=== PATIENT | female | born 1975 | race Caucasian/White ===

== ENCOUNTER 2016-07-02 09:39 | Day surgery (SDC) | payer BC ==
--- NOTE | 2016-07-02 12:06 | Operative Note ---
Endoscopy Report Date: 07/02/16 Preoperative diagnosis: Dysphagia Procedure Type of procedure: Esophagogastroduodenoscopy with biopsies Indications: Patient is a 41-year-old white female who for about one year has had what she describes as "breathing problems". She describes "choking" when she is eating and states that she, according to her, is unable to swallow and debris simultaneously. She has had some rare spontaneous vomiting. She underwent upper gastrointestinal series which was unremarkable. Plan was made for upper endoscopy to evaluate potential etiology for her symptoms. Consent was obtained and patient was taken to the same-day surgery endoscopy procedure room. She was positioned in a lateral decubitus position. Adequate intravenous sedation was achieved which of note required titration of 14 mg versed and 200 g fentanyl for the duration of the brief procedure. Olympus endoscope was inserted via the oropharynx and advanced to the esophagus. Esophagus appeared grossly normal. Stomach was cannulated and insufflated. Retroflexion revealed no evidence of any appreciable hiatal hernia. There was some diffuse nonerosive gastritis characterized by mucosal erythema and mild induration. Gastric antral mucosal biopsy was obtained for CLOtest for H. pylori. Additional biopsies were obtained of the gastric lumen. Pylorus was traversed and duodenum appeared unremarkable. Couple of duodenal biopsies were obtained. Labs she's were obtained at the gastroesophageal junction. Random esophageal biopsies were obtained due to her symptoms of dysphagia. Findings: Mild nonerosive gastritis. Recommendations: Follow-up on the results of her biopsies and H. pylori status. May benefit from proton pump inhibitors. However, no clear etiology for her unusual symptoms. Could require speech therapy for swallowing study and possible pulmonary consultation. at 1201
[2016-07-02 14:43] VITALS: BP 145/70
== END 2016-07-02 13:00 | disposition home or self-care (01) ==
LOC: SDC 09:39
PROVIDERS: Surgery
PROC: 0DB68ZX Excision of Stomach, Via Natural or Artificial Opening Endoscopic, Diagnostic (ICD-10-PCS; 2016-07-02)
PROC: 0DB98ZX Excision of Duodenum, Via Natural or Artificial Opening Endoscopic, Diagnostic (ICD-10-PCS; 2016-07-02)
PROC: 0DB48ZX Excision of Esophagogastric Junction, Via Natural or Artificial Opening Endoscopic, Diagnostic (ICD-10-PCS; principal; 2016-07-02 10:00)
DX: K29.70 Gastritis, unspecified, without bleeding (principal); R13.10 Dysphagia, unspecified

== ENCOUNTER 2017-05-08 16:39 | Emergency (ER) | payer BC ==
[~2017-05-08] VITALS: Ht 160 cm; Wt 99.8 kg
--- OUTSIDE RECORDS SUMMARY | 2017-05-08 16:48 | External Medical Summary Rpt | CCD ---
Author Author , VINNIE BIRMINGHAM Address Unknown Phone [email or web address] Purpose Continuity of Care Document - 04-24-2017 through 2016 Problems Code Diagnosis DOS Provider Status N80.9 Endometrios is, unspecified Results Labs Lab Lab Date Result Refere Interp Status Commen Order Detail nces retati t Range on CBC (hemogram) Bld Auto (04-26-2017 05:06) RBC # 11-18-2 4.44 3.89-5. complet Bld 017 10*6/mm 14 ed Auto 05:06 3 Hgb 11-18-2 12.9 11.5-15 complet Bld-mCn 017 g/dL .5 ed c 05:06 Hct VFr 11-18-2 40.0 % 34.5-44 complet Bld 017 .0 ed Auto 05:06 MCV RBC 11-18-2 90.1 fL 80.0-99 complet Auto 017 .0 ed 05:06 MCH RBC 11-18-2 29.1 pg 27.0-31 complet Qn 017 .0 ed Auto 05:06 MCHC 11-18-2 32.3 32.0-36 complet RBC 017 g/dL .0 ed Auto-mC 05:06 nc RDW RBC 11-18-2 12.9 % 11.3-14 complet 017 .5 ed Auto-Rt 05:06 o RDW RBC 11-18-2 42.4 fl 37.0-54 complet Auto 017 .0 ed 05:06 PMV Bld 11-18-2 9.7 fL 6.0-12. complet Auto 017 0 ed 05:06 Platele 11-18-2 299 150-450 complet t # Bld 017 10*3/mm ed Auto 05:06 3 WBC 11-18-2 11.01 3.50-10 complet nRBC 017 10*3/mm .80 ed cor # 05:06 3 Bld Bas Metab 2000 Pnl SerPl (04-26-2017 05:06) Comment: National [employer] Guidelines Comment: Comment: Stage Description GFR Comment: 1 Normal or High 90+ Comment: 2 Mild decrease 60-89 Comment: 3 Moderate decrease 30-59 Comment: 4 Severe decrease 15-29 Comment: 5 Kidney failure <15 Glucose 11-18-2 113 70-100 complet 017 mg/dL ed Bld-mCn 05:06 c BUN 11-18-2 8 mg/dL 9-23 complet Bld-mCn 017 ed c 05:06 Creat 11-18-2 0.60 0.60-1. complet Bld-mCn 017 mg/dL 30 ed c 05:06 Sodium 11-18-2 136 132-146 complet Bld-sCn 017 mmol/L ed c 05:06 Potassi 11-18-2 3.9 3.5-5.5 complet um 017 mmol/L ed Bld-sCn 05:06 c Chlorid 11-18-2 104 99-109 complet e 017 mmol/L ed SerPl-s 05:06 Cnc CO2 11-18-2 25.0 20.0-31 complet SerPl-s 017 mmol/L .0 ed Cnc 05:06 Calcium 11-18-2 9.2 8.7-10. complet 017 mg/dL 4 ed XXX-sCn 05:06 c GFR/BSA 11-18-2 111 >60 complet .pred 017 mL/min/ ed SerPl 05:06 1.73 MDRD-Ar VRat BUN/Cre 11-18-2 13.3 7.0-25. complet at 017 0 ed SerPl 05:06 Anion 11-18-2 7.0 3.0-11. complet Gap3 017 mmol/L 0 ed SerPl-s 05:06 Cnc CBC W Diff pnl,unspecified Bld (04-24-2017 14:18) WBC 11-16-2 10.48 3.50-10 complet nRBC 017 10*3/mm .80 ed cor # 14:18 3 Bld RBC # 11-16-2 4.54 3.89-5. complet Bld 017 10*6/mm 14 ed Auto 14:18 3 Hgb 11-16-2 13.5 11.5-15 complet Bld-mCn 017 g/dL .5 ed c 14:18 MCH RBC 11-16-2 29.7 pg 27.0-31 complet Qn 017 .0 ed Auto 14:18 MCHC -16-2 33.0 32.0-36 complet RBC 017 g/dL .0 ed Auto-mC 14:18 nc RDW RBC -16-2 13.3 % 11.3-14 complet 017 .5 ed Auto-Rt 14:18 o RDW RBC -16-2 43.4 fl 37.0-54 complet Auto 017 .0 ed 14:18 PMV Bld 16-2 9.9 fL 6.0-12. complet Auto 017 0 ed 14:18 Platele -16-2 338 150-450 complet t # Bld 017 10*3/mm ed Auto 14:18 3 Neutrop 1116-2 70.2 % 41.0-71 complet hils/le 017 .0 ed uk NFr 14:18 Bld Auto Lymphoc -16-2 20.7 % 24.0-44 complet ytes/le 017 .0 ed uk NFr 14:18 Bld Auto Monocyt 16-2 6.5 % 0.0-12. complet es/leuk 017 0 ed NFr 14:18 Bld Auto Eosinop -16-2 2.1 % 0.0-3.0 complet hil/oleg 017 ed k NFr 14:18 Bld Auto Hct VFr 16-2 40.9 % 34.5-44 complet Bld 017 .0 ed Auto 14:18 MCV RBC -16-2 90.1 fL 80.0-99 complet Auto 017 .0 ed 14:18 Basophi 11-16-2 0.2 % 0.0-1.0 complet ls/leuk 017 ed NFr 14:18 Bld Auto Imm 11-16-2 0.3 % 0.0-0.6 complet Granulo 017 ed cytes/l 14:18 euk NFr Bld Neutrop 11-16-2 7.36 1.50-8. complet hils # 017 10*3/mm 30 ed Bld 14:18 3 Auto Lymphoc 11-16-2 2.17 0.60-4. complet ytes # 017 10*3/mm 80 ed Bld 14:18 3 Auto Monocyt 11-16-2 0.68 0.00-1. complet es # 017 10*3/mm 00 ed Bld 14:18 3 Auto Eosinop 11-16-2 0.22 0.00-0. complet hil # 017 10*3/mm 30 ed Bld 14:18 3 Auto Basophi 11-16-2 0.02 0.00-0. complet ls # 017 10*3/mm 20 ed Bld 14:18 3 Auto Imm 11-16-2 0.03 0.00-0. complet Granulo 017 10*3/mm 03 ed cytes # 14:18 3 Bld B-HCG SerPl-aCnc (04-24-2017 14:18) Comment: HCG Expected Values: Comment: Comment: Non females: ? less than 5 mIU/mL Comment: Comment: Males: ? less than 5 mIU/mL Comment: Comment: females: Comment: 0-1 Weeks Gestation ?5-50 Comment: 1-2 Weeks Gestation ?50-500 Comment: 2-3 Weeks Gestation ?100-5000 Comment: 3-4 Weeks Gestation ?[phone] Comment: 4-5 Weeks Gestation ?[phone] Comment: 5-6 Weeks Gestation ?[phone] Comment: 6-8 Weeks Gestation ?[phone] Comment: 2-3 Months Gestation ? [phone] Comment: Comment: ? Note: ?If a value is between 5-25 mIU/mL recommend Comment: repeat testing and clinical correlation. HGC < 5.00 complet Intact+ 017 mIU/mL ed B 14:18 SerPl-a Cnc Comp Metab 1998 Pnl SerPl (04-24-2017 14:18) Comment: National Kid[employer] Guidelines Comment: Comment: Stage Description GFR Comment: 1 Normal or High 90+ Comment: 2 Mild decrease 60-89 Comment: 3 Moderate decrease 30-59 Comment: 4 Severe decrease 15-29 Comment: 5 Kidney failure <15 Glucose 131 70-100 complet 017 mg/dL ed Bld-mCn 14:18 c BUN 11-16-2 14 9-23 complet Bld-mCn 017 mg/dL ed c 14:18 Creat 16-2 0.60 0.60-1. complet Bld-mCn 017 mg/dL 30 ed c 14:18 Sodium -16-2 136 132-146 complet Bld-sCn 017 mmol/L ed c 14:18 Potassi 16-2 4.4 3.5-5.5 complet um 017 mmol/L ed Bld-sCn 14:18 c Chlorid 16-2 103 99-109 complet e 017 mmol/L ed SerPl-s 14:18 Cnc CO2 16-2 22.0 20.0-31 complet SerPl-s 017 mmol/L .0 ed Cnc 14:18 Calcium 16-2 9.2 8.7-10. complet 017 mg/dL 4 ed XXX-sCn 14:18 c Prot 16-2 6.8 5.7-8.2 complet SerPl-m 017 g/dL ed Cnc 14:18 Albumin 04-24-2 4.30 3.20-4. complet 017 g/dL 80 ed SerPl-m 14:18 Cnc ALT 16-2 45 U/L 7-40 complet SerPl w 017 ed 14:18 P-5'-P- cCnc AST 04-24-2 33 U/L 0-33 complet SerPl-c 017 ed Cnc 14:18 ALP 16-2 79 U/L 25-100 complet SerPl-c 017 ed Cnc 14:18 Bilirub 16-2 0.3 0.3-1.2 complet 017 mg/dL ed SerPl-m 14:18 Cnc GFR/BSA 16-2 111 >60 complet .pred 017 mL/min/ ed SerPl 14:18 1.73 MDRD-Ar VRat Globuli 16-2 2.5 complet n Ur 017 gm/dL ed Elph-mC 14:18 nc Albumin 16-2 1.7 1.5-2.5 complet /Glob 017 g/dL ed SerPl 14:18 BUN/Cre 04-24-2 23.3 7.0-25. complet at 017 0 ed SerPl 14:18 Anion 04-24-2 11.0 3.0-11. complet Gap3 017 mmol/L 0 ed SerPl-s 14:18 Cnc
--- OUTSIDE RECORDS SUMMARY | 2017-05-08 16:48 | External Medical Summary Rpt | CCD ---
Author Author [employer] Organization [employer] Address Unknown Phone Unavailable Purpose Continuity of Care Document - through 2016
--- OUTSIDE RECORDS SUMMARY | 2017-05-08 16:48 | External Medical Summary Rpt | CCD ---
Author Author , VINNIE BIRMINGHAM Address Unknown Phone [email or web address] Purpose Continuity of Care Document - 04-24-2017 [...] Weeks Gestation ?100-5000 Comment: 3-4 Weeks Gestation ?[phone] Comment: 4-5 Weeks Gestation ?[phone] Comment: 5-6 Weeks Gestation ?[phone] Comment: 6-8 Weeks Gestation ?[phone] Comment: 2-3 Months Gestation ? [phone] Comment: Comment: ? Note: ?If a value [...]
--- OUTSIDE RECORDS SUMMARY | 2017-05-08 16:49 | External Medical Summary Rpt | CCD ---
Demographics Preferred Language Monegasque Marital Status Unknown Pentecostalism Affiliation Unknown Race Unknown Ethnic Group Unknown Author Author , VINNIE BIRMINGHAM Address Unknown Phone Immunization No patient found.
--- OUTSIDE RECORDS SUMMARY | 2017-05-08 16:49 | External Medical Summary Rpt | CCD ---
Demographics Preferred Language Niuean Marital Status Unknown Hoahaoism Affiliation Unknown Race Unknown Ethnic Group Unknown Author Author , VINNIE BIRMINGHAM Address Unknown Phone Immunization No patient found.
[2017-05-08 17:06] LABS: URINE BILIRUBIN - DIPSTICK NEGATIVE (NEG); URINE BLOOD 1+ (NEG)
[2017-05-08] MEDS ORDERED: OXYCODONE 5MG TA5 MG PO (17:34)
[2017-05-08] MEDS ORDERED: HYDROXYZINE HYD50 M1 PO (17:34)
[2017-05-08] MEDS ORDERED: MOTRIN 600MG.600 MG PO (17:35)
[2017-05-08] MEDS ORDERED: STOOL SOFTENER1 TAB NG (17:36)
--- NOTE | 2017-05-08 18:00 | Emergency Room Report ---
History of Present Illness Time Seen by [id number] Presenting Problem in Triage Pt arrived:Walked Presenting Problem:PT STATES SHE HAD A HYSTERECTOMY ON APR 25 AT , DR MARCIE MORGAN. PT HAS INCREASED PELVIC PAIN FOR THE LAST 5 DAYS, WITH LIGHY BLEEDING AT TIMES. PT STATES SHE FEELS TERRIBLE. 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 N Clinical Suspician of Infection? N Mental Status: 1 - Regular (Normal Baseline) Sepsis Risk:Possible Sepsis Risk Have you (or family members/close friends) recently traveled outside the [place]? N If Yes, where/when: Have you had exposure to infectious disease within the past month? N TB? Other? Specify: Patient of Dr. Marcie Wu, [facility] in [place], post op s/p vag hysterectomy due to endometriosis and leiomyomata, as well as mass posterior to bladder with pathology negative for cancer per patient. She has been doing well until the last few days, when she experienced a little vaginal bleeding and some malaise. Reports anterior pain, and some pink tinged fluid vaginally. ALLERGIES Uncoded Allergies: LIQUID BANDAID (SWELLING 07/01/16) Home Medications Reported Medications HYDROXYZINE HCL (Hydroxyzine Hydrochloride) 50 MG PO Q6H #56 OXYCODONE IR (Oxycodone IR) 5 MG PO Q4HP PRN PAIN #20 IBUPROFEN (Motrin 600MG) 600 MG PO Q6HP PRN PAIN #30 SENNOSIDES/DOCUSATE SODIUM (Stool Softener Tablet) 1 TAB NG DAILY History Medical History General CAD? No Angina: No MO: No Hypertension? No Hyperlipidemia? No CHF? No DVT? No PE? No COPD? No Asthma? No Anemia? No GERD? No Gastric ulcers? No GI Bleed? No Hernia? No Thyroid Problems? No Hypothyroidism? No CVA? No Seizures? No Diabetes? No Renal Insuffiency? No End Stage Renal Disease? No UTI? No Stones? No BPH? No GB Disease: No Nephritic Syndrome? No Asplenia? No Hepatitis? No Sickle Cell Disease? No Arthritis? No Migraines? No Cataracts? No Glaucoma? No MRSA? No HIV? No TB? No Anxiety? No Depression? No Cancer? No More? 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 Physical Exam Vital Signs Vital Signs Date Time Temp Pulse Resp B/P Pulse O2 O2 Flow FiO2 Ox Delivery Rate 05/08 1812 16 05/08 1746 98.1 110 20 131/85 97 05/08 1730 98.1 110 20 131/85 97 General Appearance normal appearance, WD/WN, no apparent distress Eye Exam - bilateral eye normal exam, bilateral eye PERRL, bilateral eye EOMI Neck normal inspection, non-tender, supple, full range of motion Respiratory Status Yes: trachea midline, chest symmetrical, non tender chest. No: respiratory distress, tender on palpation, use of accessory muscles, pain on inspiration, pain on expiration. Lung Sounds bilateral: normal breath sounds, lungs clear. Cardiovascular normal exam, regular rate/rhythm, no peripheral edema, no gallop, no JVD, no murmur, no rub, normal peripheral pulses Gastrointestinal normal bowel sounds, normal exam, non tender, soft, no organomegaly, no pulsatile mass, no guarding, no rebound Strength 5 Upper Ext (L), 5 Upper Ext (R), 5 Lower Ext (L), 5 Lower Ext (R) Pelvic normal external exam, normal internal exam, vaginal cuff intact, no trauma or dehiscence noted; minor amount of serosanguinous fluid noted. no blood at urethral meatus. Introitus intact. No lesions. Bacterial swabs obtained and sent to lab. Neurologic alert, normal exam, no motor/sensory deficits, oriented x 3 Skin intact, normal color, warm/dry Medical Decision Making LABS/Meds/Orders Pt receiving controlled substance in ED? No Results/Orders Laboratory Tests 05/08/17 1805: Sodium 136, Potassium 3.7, Chloride 99, Carbon Dioxide 30, BUN 13, Creatinine 0.7, Estimated Creat Clear 168, Estimated GFR (MDRD) 93, Glucose 110 H, Calcium 9.5, Total Bilirubin 0.4, AST 19, ALT 42, Alkaline Phosphatase 97, Total Protein 7.8, Albumin 3.7, Globulin 4.1 H, Albumin/Globulin Ratio 0.9 L, WBC 14.9 H, RBC 4.56, Hgb 13.4, Hct 40.0, MCV 87.8, RDW 12.4, Plt Count 327, MPV 7.2 L, Gran % 82.6 H, Gran # 12.3 H, Lymphocytes % 10.7, Monocytes % 2.4, Eosinophils % 3.8, Basophils % 0.4, Lymphocytes # 1.6, Monocytes # 0.4, Eosinophils # 0.6 H , Basophils # 0.1, PUBS MCHC 33.5, MCH 29.4 05/08/17 170: Urine Color YELLOW, Urine Appearance Clear, Urine pH 6.5, Ur Specific [place] 1.005, Urine Protein NEGATIVE, Urine Ketones NEGATIVE, Urine Blood 1+ H, Urine Nitrate NEGATIVE, Urine Bilirubin NEGATIVE, Urine Urobilinogen 0.2, Ur Leukocyte Esterase TRACE H, Urine Glucose NEGATIVE Current Medication Orders Sig/Ariana Start time Last Medication Dose Route Stop Time Status Admin Iopamidol 75 ML ONCE ONE 05/08 1845 UNV 05/08 IV 05/08 184 1840 Sodium Chloride 10 ML ONCE ONE 05/08 184 UNV 05/08 IV 05/08 1846 1840 Ketorolac 30 MG ONCE ONE 05/08 181 DC 05/08 Tromethamine IV 05/08 1816 181 Ketorolac 0 .STK-MED ONE 05/08 1810 DC Tromethamine .ROUTE Sodium Chloride 10 ML PRN PRN 05/08 174 AC IV 05/09 174 Orders Procedure Date/time Status DIET-NOTHING BY MOUTH 05/09 B Active CULTURE, WOUND 05/[address] ABD & PELVIS W/ CONTRAST 05/[address] ABD/PELVIS REQ 05/08 180 Complete IV SALINE LOCK 05/08 1745 Active CBC WITH AUTO DIFF 05/08 1745 Complete CHEM 12 PROFILE 05/08 1745 Complete UTC URINE DIPSTICK 05/08 170 Complete XRAY/CT/US XRAY/CT/US CT abdomen, pelvis CT interpretation by reviewed by me ([facility] report reviewed) Time results known: 1926 CT Results normal/NAD, Possible cystitis, no abscess; s/p hyst Progress ED Progress Notes 2 Date 05/08/17 Time 1927 Comment Resting comfortably; declines Rx for pain meds; provided with disc for her MD to review at f/u Departure Departure Time of Disposition 1928 Disposition DC Home or Self Care(routine) Clinical Impression Primary Impression: Pelvic pain Secondary Impressions: Post-operative pain Condition STABLE Referrals Tristen Dunlap MD (Family) Patient Instructions DI for Vaginal Hysterectomy Additional Instructions Rx Ciprofloxacin for possible early UTI; see Dr. Wu for follow up as already scheduled and bring your disc for her to review; Ibuprofen as needed. Discharge Counseling Counseled pt/family regarding diagnosis, test results, medications/RX, home care, follow up needs Prescriptions Current Visit Scripts Ciprofloxacin HCl (Cipro 500MG TAB) 500 MG PO BID #14 TAB generic ok ED Critical Care Critical Care No at 1931
[2017-05-08 18:13] LABS: HEMOGLOBIN 13.4 g/dL (12.2-16.2); LYMPH # 1.6 K/mm3 (0.7-4.5); LYMPH % 10.7 % (10-50.0)
[2017-05-08] MEDS ORDERED: CIPRO 500MG TA500 MG PO (19:31)
[2017-05-08 19:33] VITALS: BP 131/85
--- NOTE | 2017-05-09 07:39 | RADIOLOGY REPORT PS360 ---
CT ABD PELVIS W/ CONTRAST CLINICAL INDICATION: Pelvic pain following surgery, recent hysterectomy 10 days ago, dysuria POST OP PAIN, VAGINAL HYSTERECTOMY, REMOVAL OF BENIGN TUMO ORDERING PHYSICIAN: Laverne Beltre MD PATIENT AGE: 41 years COMPARISON: None TECHNIQUE: Axial images obtained with sagittal and coronal reformats. PROCEDURE: Oral Contrast: None IV Contrast: 75 mL Isovue-370 . FINDINGS: Lower thorax: No acute finding ABDOMEN: Liver: No masses or biliary dilatation. Gallbladder: Cholecystectomy, no ductal dilatation Pancreas: No masses or peripancreatic fluid collections. Spleen: Unremarkable. Adrenals: Unremarkable Kidneys/ureters: No masses. No renal calculi. No hydronephrosis. No perinephric fluid collections. No ureteral dilatation or obvious ureteral calculi. Stomach bowel: Nondistended. No obvious mass or thickening. Appendix: No evidence of appendicitis. PELVIS: Reproductive: Status post hysterectomy. There is some stranding of the fat within the hysterectomy bed. No abscess. Bladder: There is mild thickening of the urinary bladder wall and minimal haziness of the fat surrounding the urinary bladder. ABDOMEN & PELVIS: Peritoneum: No abnormal fluid collections. No obvious inflammatory changes. No free air. Lymph nodes: There are a few small lymph nodes in the external iliac chain and retroperitoneum Vasculature: No evidence of abdominal aortic aneurysm. No retroperitoneal hemorrhage evident. Bones: No acute fracture Abdominal wall: Small umbilical hernia containing fat IMPRESSION: 1. Mild stranding of the fat within the pelvis consistent with recent hysterectomy. No abscess. No hydronephrosis or ureteral dilatation. 2. Mild generalized thickening of the urinary bladder wall with mild haziness surrounding the urinary bladder wall. Cystitis is a consideration versus nondistention. 3. Other nonacute findings as described above
== END 2017-05-08 19:35 | disposition home or self-care (01) ==
LOC: UTC 16:39 → ER 16:44
PROVIDERS: Emergency Medicine; Nurse Practitioner Family
DX: G89.18 Other acute postprocedural pain (principal)
CPT/HCPCS: Q9967